=== PATIENT | female | born 1980 | race Caucasian/White ===

== ENCOUNTER 2024-03-12 13:31 | Emergency (ER) | payer MEDICAID ==
[~2024-03-12] VITALS: Ht 165.1 cm; Wt 47.6 kg
[~2024-03-12 13:31] MED LIST: IBUP-1953 PO
[2024-03-12] MEDS ORDERED: LIDOCAINE HCL 1% 20 ML VIAL ONE (14:08)
[2024-03-12] MEDS ORDERED: CEphaleXIN 500 MG CAPSULE ONE (14:12)
[2024-03-12] MEDS: LIDOCAINE HCL 1% 20 ML VIAL IJ ONE (14:23)
[2024-03-12] MEDS: CEphaleXIN 500 MG CAPSULE PO ONE (14:23)
[2024-03-12] MEDS ORDERED: OXYCODONE/APAP 5-325 MG TABLET ONE (14:23)
[2024-03-12] MEDS: OXYCODONE/APAP 5-325 MG TABLET PO ONE (14:24)
[2024-03-12] MEDS ORDERED: OXYC-128 PO (15:19)
[2024-03-12] MEDS ORDERED: CEPH500C2 PO (15:19)
[2024-03-12 15:36] VITALS: BP 116/82; O2SAT 97
== END 2024-03-12 15:37 | disposition home or self-care (01) ==
LOC: ER 13:32
DX: L03.012 Cellulitis of left finger (principal); Z79.899 Other long term (current) drug therapy
CPT/HCPCS: 99283; 10060; J3490; A4606; A4663

== ENCOUNTER 2024-03-15 12:50 | Emergency (ER) | payer MEDICAID ==
[~2024-03-15] VITALS: Ht 157.5 cm; Wt 52.2 kg
[~2024-03-15 12:50] MED LIST changes: +CEPH500C2 PO; +OXYC-128 PO
[2024-03-15] MEDS ORDERED: SULF1TAB48 PO (13:27)
[2024-03-15] MEDS ORDERED: MUPI22OI2 TP (13:27)
[2024-03-15 13:36] VITALS: BP 100/50; TEMP 98.8; O2SAT 100
== END 2024-03-15 13:47 | disposition home or self-care (01) ==
LOC: ER 12:50
DX: L03.012 Cellulitis of left finger (principal); Z98.890 Other specified postprocedural states; Z79.899 Other long term (current) drug therapy
CPT/HCPCS: A4606; A4663